=== PATIENT | female | born 2000 | race Caucasian/White ===

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

== ENCOUNTER 2020-04-05 12:16 | Emergency (ER) | payer OTHER ==
[~2020-04-05] VITALS: Ht 175.3 cm; Wt 69.0 kg
[~2020-04-05 12:16] MED LIST changes: +AMOXICILLIN500 MG PO; +CLARITIN10 M1 PO
[2020-04-05 13:24] LABS: URINE BILIRUBIN - DIPSTICK NEGATIVE (NEGATIVE); URINE BLOOD DIPSTICK NEGATIVE (NEGATIVE); URINE CLARITY CLEAR; URINE COLOR YELLOW; URINE GLUCOSE - DIPSTICK NEGATIVE (NEGATIVE); URINE KETONE NEGATIVE (NEGATIVE); URINE LEUK ESTERASE NEGATIVE (Negative); URINE NITRITE - DIPSTICK NEGATIVE (Negative); URINE PROTEIN - DIPSTICK NEGATIVE (NEG-TRACE); URINE SPECIFIC GRAVITY 1.025; URINE UROBILINOGEN - DIPSTICK 0.2 E.U./dL (0.2)
[2020-04-05 13:33] LABS: GFR > 60 ML/MIN (>=60 (CALC)); GFR FOR AFR.AMER. > 60 ML/MIN (>=60 (CALC))
[2020-04-05 13:34] LABS: HEMATOCRIT 34.4 % (37.0-47.0); HEMOGLOBIN 10.5 g/dl (12.0-16.0); IMMATURE GRANULOCYTES 0.2 % (0.0-5.0); MEAN CORPUSCULAR HGB 24.3 pG CALC (26.0-32.0); MEAN CORPUSCULAR HGB CONC 30.5 g/dL CAL (32.0-36.0); NEUT# 2.43 thou/uL (2.00-7.15); RED BLOOD COUNT 4.32 mill/uL (4.20-5.60); RED CELL DISTRI WIDTH 13.2 % (11.5-15.5)
[2020-04-05 13:36] LABS: MEAN CELL VOLUME 79.6 fL CALC (80.0-100.0)
[2020-04-05 13:46] LABS: ALBUMIN 4.5 g/dL (3.2-5.0); ANION GAP 11 (6-22 (CALC)); BILIRUBIN, TOTAL 0.5 mg/dL (0.0-1.4); BUN 11 mg/dL (8-21); BUN/CREATININE RATIO 16 (12-20 (CALC)); CARBON DIOXIDE 25 mmol/l (22-30); CHLORIDE 107 mmol/l (95-108); CREATININE 0.7 mg/dL (0.5-1.0); GFR > 60 ML/MIN (>=60 (CALC)); GFR FOR AFR.AMER. > 60 ML/MIN (>=60 (CALC)); SGOT/AST 25 u/l (14-36); SODIUM 140 mmol/l (137-146)
[2020-04-05 13:52] LABS: ALKALINE PHOSPHATASE 62 u/l (38-126)
[2020-04-05 15:00] VITALS: BP 121/72
[2020-04-05] MEDS ORDERED: TRAMADOL HYDROC50 M1 PO (15:16)
== END 2020-04-05 15:32 | disposition home or self-care (01) | DRG 556 ==
LOC: ED 12:16
PROVIDERS: Family Medicine
DX: M62.838 Other muscle spasm (principal); R10.10 Upper abdominal pain, unspecified; V49.9XXA Car occupant (driver) (passenger) injured in unspecified traffic accident, initial encounter
CPT/HCPCS: Q9967